=== PATIENT | male | born 1945 | race Caucasian/White ===

== ENCOUNTER 2018-06-26 13:05 | Emergency (ER) | payer MEDICARE, BC ==
[2018-06-26] MEDS ORDERED: LIDOCAINE 1%-EPI 1:100,000 30 ML VIAL SQ STA (14:41)
--- NOTE | 2018-06-26 15:09 | ED ---
Wound/Laceration HPI - General Chief Complaint: Wound/Laceration Stated Complaint: Hand Laceration Time Seen by Provider: 06/26/18 13:36 Source: patient, RN notes reviewed, old records reviewed Mode of arrival: ambulatory Limitations: no limitations - History of Present Illness Initial Comments: This is a 73 year old male with CC of left ring finger laceration after he tripped and cut his hand on scrap metal and wood yesterday evening. Patient reports TDAP is up to date. Denies painwith ROM of the finger. No other lacerations or injury. - Related Data Previous Rx's Medication Instructions Recorded Cephalexin [Keflex] 500 mg PO Q8HR #21 cap 06/26/18 Allergies Allergy/AdvReac Type Severity Reaction Status Date / Time No Known Allergies Allergy Verified 06/26/18 13:18 Review of Systems ROS Statement: Those systems with pertinent positive or pertinent negative responses have been documented in the HPI. ROS Other: All systems not noted in ROS Statement are negative. Past Medical History Past Medical History: Hyperlipidemia, Hypertension Additional Past Medical History / Comment(s): chronic back pain History of Any Multi-Drug Resistant Organisms: None Reported Past Surgical History: Appendectomy, Orthopedic Surgery Past Psychological History: No Psychological Hx Reported Smoking Status: Never smoker Past Alcohol Use History: Occasional Past Drug Use History: None Reported General Exam - General Exam Comments Initial Comments: This is a 73 year old male, no distress. Limitations: no limitations General appearance: alert, in no apparent distress Head exam: Present: atraumatic, normocephalic, normal inspection Eye exam: Present: normal appearance, PERRL, EOMI. Absent: scleral icterus, conjunctival injection, periorbital swelling ENT exam: Present: normal exam, mucous membranes moist Neck exam: Present: normal inspection. Absent: tenderness, meningismus, lymphadenopathy Respiratory exam: Present: normal lung sounds bilaterally. Absent: respiratory distress, wheezes, rales, rhonchi, stridor Cardiovascular Exam: Present: regular rate, normal rhythm, normal heart sounds. Absent: systolic murmur, diastolic murmur, rubs, gallop, clicks GI/Abdominal exam: Present: soft, normal bowel sounds. Absent: distended, tenderness, guarding, rebound, rigid Extremities exam: Present: normal inspection, full ROM, normal capillary refill. Absent: tenderness, pedal edema, joint swelling, calf tenderness Left Forearm Wrist exam: Present: normal inspection, full ROM Hand Wrist exam: Present: full ROM, laceration (2cm laceration, angulated over left ring finger) Hand L/R Back: 1 - 2cm laceration, angulated. No tendon involvement. Neurosensory exam: Present: 2-point discrimination, radial nerve intact, ulnar nerve intact, median nerve intact Vascular: Present: normal capillary refill Back exam: Present: normal inspection Psychiatric exam: Present: normal affect, normal mood Skin exam: Present: warm, dry, intact, normal color. Absent: rash Course Vital Signs 06/26/18 06/26/18 13:15 15:21 Temperature 98.4 F 98.7 F Pulse Rate 78 69 Respiratory 20 16 Rate Blood Pressure 170/80 141/66 O2 Sat by Pulse 98 99 Oximetry Procedures - Laceration Laceration #1 Indication: laceration Site: hand (left ring finger, proximal) Size (cm): 2 Description: linear Depth: simple, single layer Anesthetic Used: lidocaine 1% Anesthesia Technique: local infiltration Amount (mls): 3 Pre-repair: wound explored, irrigated extensively Type of Sutures: vicryl Size of Sutures: 5-0 Number of Sutures: 5 Technique: simple, interrupted Patient Tolerated Procedure: well, no complications Medical Decision Making - Medical Decision Making This is a 73 year old male with left ring finger laceration. Hand was soaked in soap, water and iodine. Full ROM of finger, no tendon involvement. Wound was well approximated with 5 sutures. Patient hand is somewhat contaminated with dirty and cause of wound was dirty. At this time discussed PCP follow up and suture instructions. Given Keflex for infection prevention. Return parameters discussed. - Radiology Data Radiology results: report reviewed No acute fracture or dislocation in L hand. Disposition Clinical Impression: Laceration of finger of left hand Disposition: HOME SELF-CARE Condition: Good Instructions: Care For Your Stitches (ED) Additional Instructions: Please return to the emergency room in 8-10 days to have sutures removed. Please leave wound covered for the first 24-48 hours and then leave open to air after that time. Please use clean soap and water to clean the suture area to prevent scabbing over the top of your sutures. Please watch for any signs of infection which may include but not limited to increased pain, swelling, redness , fever or chills. Please return to the emergency room if any signs of infection do occur. Please return to the emergency room for any other concerns or complications. Prescriptions: Cephalexin [Keflex] 500 mg PO Q8HR #21 cap Is patient prescribed a controlled substance at d/c from ED?: No Referrals: Aidan Lopez MD [Primary Care Provider] - 1-2 days Time of Disposition: 15:10
--- NOTE | 2018-06-26 15:11 | XR ---
EXAMINATION TYPE: XR hand complete LT DATE OF EXAM: 06/26/2018 CLINICAL HISTORY: Left hand pain TECHNIQUE: Frontal, lateral and oblique images of the left hand are obtained. COMPARISON: None. FINDINGS: There is no acute fracture/dislocation evident in the left hand. The joint spaces in the l eft hand display joint space narrowing at the first carpometacarpal joint and distal interphalangeal joints related to mild arthropathy. No radiopaque foreign body. The overlying soft tissue appears un remarkable. IMPRESSION: There is no acute fracture or dislocation in the left hand.
[2018-06-26 15:22] VITALS: BP 141/66; PULSE 69; RESP 16; TEMP 98.7
== END 2018-06-26 15:29 | disposition home or self-care (01) ==
LOC: EC 13:05
DX: S61.215A Laceration without foreign body of left ring finger without damage to nail, initial encounter (principal); W25.XXXA Contact with sharp glass, initial encounter; Y92.009 Unspecified place in unspecified non-institutional (private) residence as the place of occurrence of the external cause
CPT/HCPCS: 12001; 99283

== ENCOUNTER 2023-12-07 13:05 | Emergency (ER) | payer MEDICARE, BC ==
--- NOTE | 2023-12-07 13:47 | ED ---
Wound/Laceration HPI - General Source: patient, RN notes reviewed Mode of arrival: ambulatory Limitations: no limitations <Nafisa Hylton - Last Filed: 12/07/23 13:44> <Falguni Souza - Last Filed: 12/07/23 23:47> - General Chief Complaint: Wound/Laceration Stated Complaint: left thumb injury Time Seen by Provider: 12/07/23 13:20 - History of Present Illness Initial Comments: This is a 78-year-old male who presents to the emergency department for a left thumb injury. States that he was using a chainsaw earlier today when he accidentally cut his left thumb. He does continue to be in severe pain. Tetanus vaccine is up-to-date. (Nafisa Hylton) 78-year-old male presents emergency department for evaluation of left thumb injury. He states that he cut it with a chain saw. He reports normal range of motion to the finger. Last tetanus shot was in 2015. (Falguni Souza) - Related Data Previous Rx's Medication Instructions Recorded Cephalexin [Keflex] 500 mg PO Q8HR #21 cap 06/26/18 Cephalexin [Keflex] 500 mg PO Q6HR #28 cap 12/07/23 Allergies Allergy/AdvReac Type Severity Reaction Status Date / Time No Known Allergies Allergy Verified 12/07/23 13:40 Review of Systems ROS Other: All systems not noted in ROS Statement are negative. <Nafisa Hylton - Last Filed: 12/07/23 13:44> ROS Other: All systems not noted in ROS Statement are negative. <Falguni Souza - Last Filed: 12/07/23 23:47> ROS Statement: Those systems with pertinent positive or pertinent negative responses have been documented in the HPI. Past Medical History Past Medical History: Hyperlipidemia, Hypertension Additional Past Medical History / Comment(s): chronic back pain History of Any Multi-Drug Resistant Organisms: None Reported Past Surgical History: Appendectomy, Orthopedic Surgery Past Psychological History: No Psychological Hx Reported Smoking Status: Former smoker Past Alcohol Use History: Occasional Past Drug Use History: None Reported <Nafisa Hylton - Last Filed: 12/07/23 13:44> General Exam Limitations: no limitations <Nafisa Hylton - Last Filed: 12/07/23 13:44> Limitations: no limitations General appearance: alert, in no apparent distress Head exam: Present: atraumatic, normocephalic, normal inspection Eye exam: Present: normal appearance, PERRL, EOMI. Absent: scleral icterus, conjunctival injection, periorbital swelling ENT exam: Present: normal exam, mucous membranes moist Neck exam: Present: normal inspection. Absent: tenderness, meningismus, lymphadenopathy Respiratory exam: Present: normal lung sounds bilaterally. Absent: respiratory distress, wheezes, rales, rhonchi, stridor Cardiovascular Exam: Present: regular rate, normal rhythm, normal heart sounds. Absent: systolic murmur, diastolic murmur, rubs, gallop, clicks Extremities exam: Present: full ROM, tenderness, normal capillary refill, other (Laceration to the dorsal aspect of the left thumb, full range of motion to the thumb.). Absent: pedal edema, joint swelling Neurological exam: Present: alert, oriented X3 Psychiatric exam: Present: normal affect, normal mood Skin exam: Present: warm, dry, normal color. Absent: intact <Falguni Souza - Last Filed: 12/07/23 23:47> - General Exam Comments Initial Comments: Visual Physical Exam Vital signs reviewed General: Well-appearing, nontoxic, no acute distress. Head: Normocephalic, atraumatic Eyes: PERRLA, EOMI ENT: Airway patent Chest: Nonlabored breathing Skin: Towel over left thumb Neuro: Alert and oriented 3 Musculoskeletal: Left thumb wrapped with towel, cannot examine (Nafisa Hylton) Course Vital Signs 12/07/23 13:36 Temperature 98 F Pulse Rate 87 Respiratory 16 Rate Blood Pressure 186/97 O2 Sat by Pulse 97 Oximetry Procedures - Laceration Laceration #1 Consent Obtained: verbal consent Indication: laceration Site: hand Description: irregular Depth: simple, single layer Anesthetic Used: lidocaine 1% Anesthesia Technique: nerve block Pre-repair: wound explored, irrigated extensively Type of Sutures: other Size of Sutures: 5-0 Number of Sutures: 4 Technique: simple, interrupted Patient Tolerated Procedure: well, no complications <Falguni Souza - Last Filed: 12/07/23 23:47> Medical Decision Making <Nafisa Hylton - Last Filed: 12/07/23 13:44> <KulFalguni ferguson - Last Filed: 12/07/23 23:47> - Medical Decision Making I performed the QuickNote portion of this chart. Signed Nafisa Hylton PA-C. (Nafisa Hylton) Was pt. sent in by a medical professional or institution (SESAR Pérez, MANAGER NUCLEAR, urgent care, hospital, or [facility]...) When possible be specific @ -No Did you speak to anyone other than the patient for history (EMS, parent, family, police, friend...)? What history was obtained from this source @ -No Did you review nursing and triage notes (agree or disagree)? Why? @ -I reviewed and agree with nursing and triage notes Were old charts reviewed (outside hosp., previous admission, EMS record, old EKG, old radiological studies, urgent care reports/EKG's, [facility] records)? Report findings @ -No old charts were reviewed Differential Diagnosis (chest pain, altered mental status, abdominal pain women, abdominal pain men, vaginal bleeding, weakness, fever, dyspnea, syncope, headache, dizziness, GI bleed, back pain, seizure, CVA, palpatations, mental health, musculoskeletal)? @ -Differential Musculoskeletal Muscular strain, contusion, ligament sprain, fracture, arthritis, septic arthritis, bursitis, cellulitis, muscle spasm, nerve compression, DVT, arterial occlusion, herpes zoster, electrolyte abnormality, tumor.... This is not meant to be in all inclusive list EKG interpreted by me (3pts min.). @ -none X-rays interpreted by me (1pt min.). @ -X-ray left thumb shows no acute fracture, soft tissue injury present CT interpreted by me (1pt min.). @ -None done U/S interpreted by me (1pt. min.). @ -None done What testing was considered but not performed or refused? (CT, X-rays, U/S, labs)? Why? @ -None What meds were considered but not given or refused? Why? @ -None Did you discuss the management of the patient with other professionals (professionals i.e. SESAR Pérez, MANAGER NUCLEAR, lab, RT, psych nurse, psych social worker, spring fitter helper, teacher, real estate officer, piano case and bench assembler)? Give summary @ -No Was smoking cessation discussed for >3mins.? @ -No Was critical care preformed (if so, how long)? @ -No Were there social determinants of health that impacted care today? How? (Homelessness, low income, unemployed, alcoholism, drug addiction, transportation, low edu. Level, literacy, decrease access to med. care, intermediate, rehab)? @ -No Was there de-escalation of care discussed even if they declined (Discuss DNR or withdrawal of care, Hospice)? DNR status @ -No What co-morbidities impacted this encounter? (DM, HTN, Smoking, COPD, CAD, Cancer, CVA, ARF, Chemo, Hep., AIDS, mental health diagnosis, sleep apnea, morbid obesity)? @ -None Was patient admitted / discharged? Hospital course, mention meds given and route, prescriptions, significant lab abnormalities, going to OR and other per tinent info. @ -discharged. She presented to the emergency department for evaluation of left thumb injury with a chain saw. Chest patient is up-to-date on his tetanus vaccination. The wound was irrigated. Laceration was repaired and Gelfoam placed on area of skin avulsion. The wound was dressed and a finger splint was placed. Advised patient to take antibiotics and follow-up with other. Cancer surgery. Patient understands agreeable with plan. Patient stable at time of discharge. Case discussed with Dr. Perez. Undiagnosed new problem with uncertain prognosis? @ -No Drug Therapy requiring intensive monitoring for toxicity (Heparin, Nitro, Insulin, Cardizem)? @ -No Were any procedures done? @ -No Diagnosis/symptom? @ -Thumb laceration Acute, or Chronic, or Acute on Chronic? @ -acute Uncomplicated (without systemic symptoms) or Complicated (systemic symptoms)? @ -uncomplicated Side effects of treatment? @ -No Exacerbation, Progression, or Severe Exacerbation? @ -No Poses a threat to life or bodily function? How? (Chest pain, [place], [place], pneumonia, PE, COPD, DKA, ARF, appy, cholecystitis, CVA, Diverticulitis, Homicidal, Suicidal, threat to staff... and all critical care pts) @ -No (Falguni Souza) Disposition <Nafisa Hylton - Last Filed: 12/07/23 13:44> Is patient prescribed a controlled substance at d/c from ED?: No <Falguni Souza - Last Filed: 12/07/23 23:47> Clinical Impression: Laceration, Avulsion of skin of finger Disposition: HOME SELF-CARE Condition: Stable Instructions (If sedation given, give patient instructions): Care For Your Stitches (ED) Additional Instructions: Have sutures removed in 7-10 days. 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 Keep wound clean and dry. Follow up with your primary care provider. Prescriptions: Cephalexin [Keflex] 500 mg PO Q6HR #28 cap Referrals: Aidan Lopez MD [Primary Care Provider] - 1-2 days Juan Diego Valdovinos DO [Doctor of Osteopathic Medicine] - 1-2 days
[2023-12-07 13:57] VITALS: BP 186/97; PULSE 87; RESP 16; TEMP 98
--- NOTE | 2023-12-07 14:24 | XR ---
EXAMINATION TYPE: XR finger LT DATE OF EXAM: 12/07/2023 COMPARISON: 06/26/2018 HISTORY: Laceration. TECHNIQUE: 3 view left thumb FINDINGS: No acute osseous abnormality is evident. Some soft tissue injury over the dorsum of the dis renzo portion of the proximal phalanx left is evident. No radiopaque foreign bodies are identified IMPRESSION: 1. No acute osseous abnormality left thumb. 2. Soft tissue injury dorsum thumb
[2023-12-07] MEDS ORDERED: DIPH,PERTUS(ACELL)TETVAC-LF 0.5 ML VIAL IM ONE (15:05)
[2023-12-07] MEDS ORDERED: LIDOCAINE 1% INJ 10MG/ML (20 ML MDV) SQ ONE (15:05)
[2023-12-07] MEDS ORDERED: GELATIN SPONGE,ABSORB (SMALL) 1 EACH SPONGE TOPICAL STA (15:40)
[2023-12-07] MEDS ORDERED: ACET/COD 300 MG/30 MG STARTER PACK 6 TAB BTL PO STA (16:18)
== END 2023-12-07 17:04 | disposition home or self-care (01) ==
LOC: EC 13:05
DX: S61.012A Laceration without foreign body of left thumb without damage to nail, initial encounter (principal); E78.5 Hyperlipidemia, unspecified; I10 Essential (primary) hypertension; Z87.891 Personal history of nicotine dependence; Z23 Encounter for immunization; W26.8XXA Contact with other sharp object(s), not elsewhere classified, initial encounter
CPT/HCPCS: 73140; 90715; 99283; 90471; 12001; J2001